=== PATIENT | female | born 1940 | race Caucasian/White ===

== ENCOUNTER 2019-05-18 13:46 | Inpatient (IN) | payer MEDICARE, OTHER ==
[~2019-05-18] VITALS: Ht 154.9 cm; Wt 70.8 kg
[~2019-05-18 13:46] MED LIST: LEVO125T8 PO; LISI10TA5 PO
[2019-05-18] MEDS ORDERED: QUET200T PO (13:54)
[2019-05-18] MEDS ORDERED: IPRA3AMP23 IH (13:54)
[2019-05-18] MEDS ORDERED: FLUO40CA49 PO (13:54)
[2019-05-18] MEDS ORDERED: ACET-868 PO (13:54)
[2019-05-18] MEDS ORDERED: QUET300T2 PO (13:54)
--- NOTE | 2019-05-18 14:07 | NUR ---
sent by [facility] for psych evaluation, pt is yelling and paranoid, pt to bed 7, -sob, pt on monitor, vss, nad noted, pending md hardy
[2019-05-18 14:33] LABS: BASOPHILS # (AUTO) 0.1 /CMM (0.0-0.2); BASOPHILS % (AUTO) 0.9 % (0.0-2.0); EOSINOPHILS % (AUTO) 0.7 % (0.0-6.0); HEMATOCRIT 37 % (33-45); HEMOGLOBIN 12.1 g/dL (11.5-14.8); LYMPHOCYTES # (AUTO) 0.9 /CMM (0.8-4.8); LYMPHOCYTES % (AUTO) 13.5 % (20.0-44.0); MEAN CORPUSCULAR HGB CONC 33 g/dl (31.0-36.0); MEAN CORPUSCULAR VOLUME 96 fL (82-100); MONOCYTES # (AUTO) 0.4 /CMM (0.1-1.30); MONOCYTES % (AUTO) 6.6 % (2.0-12.0); NEUTROPHILS % (AUTO) 78.3 % (43.0-81.0); PLATELET COUNT (AUTO) 300 /CMM (150-450); RED BLOOD CELL COUNT(AUTO) 3.88 MIL/uL (4.0-5.2); WHITE BLOOD COUNT (AUTO) 6.3 K/uL (4.3-11.0)
[2019-05-18 14:43] LABS: CALCIUM, SERUM 8.9 mg/dL (8.5-10.1); CREATININE 1.1 mg/dL (0.6-1.3)
[2019-05-18 14:46] LABS: ALBUMIN 3.7 g/dL (3.4-5.0); BILIRUBIN,DIRECT 0.1 mg/dL (0.0-0.2); BILIRUBIN,TOTAL 0.2 mg/dL (0.2-1.0); SALICYLATE 2.1 mg/dL (2.8-20.0); TOTAL PROTEIN, SERUM 7.5 g/dL (6.4-8.2)
[2019-05-18 15:22] LABS: APPEARANCE,URINE Clear (CLEAR); BILIRUBIN,URINE Negative (NEGATIVE); BLOOD, URINE Negative Ery/uL (NEGATIVE); COLOR,URINE Yellow (YELLOW); KETONES,URINE Negative (NEGATIVE); LEUKOCYTE ESTERASE ,URINE Negative (NEGATIVE); NITRITE, URINE Negative (NEGATIVE); PROTEIN,URINE Negative (NEGATIVE); UGLUCOSE Negative (NEGATIVE); UROBILINOGEN,URINE 0.2 EU/dL (0.2)
--- NOTE | 2019-05-18 15:53 | NUR ---
PT CLEARED. TAYLER VELIZ.
--- NOTE | 2019-05-18 15:56 | NUR ---
FABRIC PATTERN GRADER contacted Rowena in intake to inquire about admission to [facility]. Per Rowena, she is aware of the pt. being referred to [facility] and has contacted stemhole borer to come to evaluate the pt. FABRIC PATTERN GRADER updated MORRIS Barfield and Darrick in ED with aforementioned information.
--- NOTE | 2019-05-18 17:26 | NUR ---
REPORT GIVEN TO RODNEY NURSE [facility]; PT WILL BE TRANSPORTED TO [facility] ONCE MOVE PACKET IS READY; HOLD WRITTEN BY ART [id number]
[2019-05-18] MEDS ORDERED: BLOOD SUGAR DIAGNOSTIC 1 EACH STRIP IN ONE (18:00)
[2019-05-18] MEDS ORDERED: MAGNESIUM HYDROXIDE 30 ML UDC PO PRN (18:00)
[2019-05-18] MEDS ORDERED: MAG HYDROX/AL HYDROX/SIMETH 30 ML UDC PO PRN (18:00)
--- NOTE | 2019-05-18 20:27 | NUR ---
GPS/ROOM SERVICE ASSOCIATE ADMISSION NOTES: RECEIVED 78YR. OLD FEMALE ON A 5150 HOLD FOR GD. PT. A/O X2-3. UNCOOPERATIVE. PT. ORIENTED TO UNIT POLICY, PROCEDURES AND PROTOCOLS. CALL DAVIS WITHIN REACH AND BED ALARM ON. NOTIFIED MEDICAL AND PSYCHIATRIC MD REGARDING PT. ADMISSION TO UNIT.
[2019-05-18 20:51] VITALS: BP 148/64
[2019-05-18 21:00] VITALS: BP 148/64
[2019-05-18] MEDS ORDERED: IPRATROPIUM NEB FS 0.5 MG/2.5 ML AMPUL.NEB NEB PRN (22:00)
[2019-05-18] MEDS ORDERED: ALBUTEROL FS 2.5 MG/3 ML VIAL.NEB NEB PRN (22:00)
[2019-05-19 08:00] VITALS: BP 113/76
[2019-05-19] MEDS: LEVOTHYROXINE SODIUM 100 MCG TABLET PO SCH (08:17)
[2019-05-19] MEDS: METOPROLOL TARTRATE 25 MG TABLET PO SCH ×2 (09:30→21:27)
--- NOTE | 2019-05-19 10:25 | NUR ---
Facility Contact: JANELLE contacted Constance ([phone]) from [facility] and inquired about whether or not the pt can return to their facility and was informed that a referral would need to sent. JANELLE stated there is no information to send at this time and will send paperwork at a later time.
--- NOTE | 2019-05-19 11:41 | NUR ---
Initial Discharge Plan: Pt currently resides at [facility] located at [address] [place] [address]; ([phone]). Per pt, she would like to return to her home. Per Constance from the facility, the pt will be allowed to return. JANELLE will work with the pt and the MD regarding appropriate discharge planning. SW will form a safe and proper discharge plan.
--- NOTE | 2019-05-19 15:27 | NUR ---
Group Note: SW encouraged pt to participate in group on 05/19/19 at 2pm discussing social supports. Pt stated that she did not want to participate in group and the SW explored the pts resistance. Pt stated that she wanted to stay in her room because it was her first day and she did not want to talk about anything with the other patients. Pt stated that she had children but they are all living their own lives and that they are not involved with her anymore. When SW asked how that made her feel, the pt began to cry and asked the SW to leave her alone.
[2019-05-19 16:00] VITALS: BP 156/63
[2019-05-19 20:30] VITALS: BP 144/69
--- NOTE | 2019-05-19 20:30 | NUR ---
GPS RN NOTE PATIENT SEEN BY DR. THURSTON WITH NEW ORDERS. PATIENT GOT AGITATED IN FRONT OF MD, PATIENT PICKED UP HER WALKER ANXIOUSLY FROM ONE SIDE OF THE BED TO ANOTHER SIDE WHILE LAYING IN BED ASKING MD & STAFF TO LEAVE THE ROOM WHILE MD IS DISCUSSING PLAN OF CARE & NEW MEDICINES TO BE STARTED. MD & STAFF REDIRECTED THE PATIENT & MD MADE PT. AWARE ABOUT STARTING NEW MEDICINES. PT. DID CALM DOWN. CONSENT WAS FAXED TO THE PHARMACY. WILL FOLLOW UP & GIVE MEDICINE ORDERED.
[2019-05-19] MEDS: BENZTROPINE MESYLATE (1 MG) 1 MG TABLET PO SCH (20:55)
[2019-05-19] MEDS: FLUPHENAZINE HCL 10 MG TABLET PO SCH (21:51)
[2019-05-19] MEDS: CARBAMAZEPINE 200 MG TABLET PO SCH (21:51)
[2019-05-19] MEDS: ACETAMINOPHEN 325 MG TABLET PO PRN (23:22)
--- NOTE | 2019-05-19 23:26 | NUR ---
PRN TYLENOL GIVEN PATIENT C/O BACK PAIN 06/26, WANTED TO TAKE PAIN MEDICINE, PRN TYLENOL 650 MG PO GIVEN. WILL CONTINUE TO MONITOR FOR ANY CHANGES.
--- NOTE | 2019-05-20 01:47 | NUR ---
REFUSED SKIN CARE PATIENT CONTINUED TO REFUSE SKIN ASSESSMENT DESPITE OF RISKS & BENEFITS EXPLANATIONS, GETS VERY AGITED, ANXIOUS, RESTLESS & STARTS SCREAMING. VISIBLE SKIN AREAS FACE & ARMS SKIN APPEARED TO BE CLEAR & INTACT.
[2019-05-20] MEDS: LORAZEPAM 0.5 MG TABLET PO PRN ×2 (07:03→23:12)
--- NOTE | 2019-05-20 07:03 | NUR ---
PRN ATIVAN GIVEN PATIENT IS VERY ANXIOUS, RESTLESS, CRYING, SCREAMING, AGITATED, PRN ATIVAN 1 MG PO GIVEN. WILL ENDORSE TO AM RN TO CONTINUE MONITORING PT'S BEHAVIOR.
[2019-05-20 08:00] VITALS: BP 132/91
[2019-05-20] MEDS: FLUPHENAZINE HCL 10 MG TABLET PO SCH ×3 (08:56→16:58)
[2019-05-20] MEDS: LEVOTHYROXINE SODIUM 100 MCG TABLET PO SCH (08:57)
[2019-05-20] MEDS: CARBAMAZEPINE 200 MG TABLET PO SCH ×3 (08:57→16:58)
[2019-05-20] MEDS: FLUOXETINE HCL 20 MG CAPSULE PO SCH (08:57)
[2019-05-20] MEDS: BENZTROPINE MESYLATE (1 MG) 1 MG TABLET PO SCH ×3 (08:57→16:58)
[2019-05-20] MEDS: METOPROLOL TARTRATE 25 MG TABLET PO SCH ×2 (08:57→21:11)
[2019-05-20 10:40] LABS: ALBUMIN 3.5 g/dL (3.4-5.0); BILIRUBIN,TOTAL 0.4 mg/dL (0.2-1.0); CALCIUM, SERUM 8.8 mg/dL (8.5-10.1); CREATININE 1.1 mg/dL (0.6-1.3); POTASSIUM 3.4 mmol/L (3.5-5.1); TOTAL PROTEIN, SERUM 7.6 g/dL (6.4-8.2)
[2019-05-20] MEDS ORDERED: POTASSIUM CHLORIDE 20 MEQ TAB.PRT.SR PO ONE (11:00)
[2019-05-20 16:00] VITALS: BP 121/73
[2019-05-20 20:08] VITALS: BP 123/83
[2019-05-21 08:00] VITALS: BP 138/52
[2019-05-21] MEDS: CARBAMAZEPINE 200 MG TABLET PO SCH ×3 (09:20→17:55)
[2019-05-21] MEDS: FLUOXETINE HCL 20 MG CAPSULE PO SCH (09:21)
[2019-05-21] MEDS: FLUPHENAZINE HCL 10 MG TABLET PO SCH ×3 (09:21→17:55)
[2019-05-21] MEDS: BENZTROPINE MESYLATE (1 MG) 1 MG TABLET PO SCH ×3 (09:21→17:55)
[2019-05-21] MEDS: LEVOTHYROXINE SODIUM 100 MCG TABLET PO SCH (09:21)
[2019-05-21] MEDS: METOPROLOL TARTRATE 25 MG TABLET PO SCH ×2 (09:21→21:09)
[2019-05-21 16:00] VITALS: BP 144/66
[2019-05-21 19:50] VITALS: BP 134/89
[2019-05-21] MEDS: LORAZEPAM 0.5 MG TABLET PO PRN (21:09)
[2019-05-21] MEDS: TEMAZEPAM 7.5 MG CAPSULE PO PRN (22:19)
--- NOTE | 2019-05-22 05:53 | NUR ---
RN NOTES PT SKIN CHECK DONE, PICTURES TAKEN AND PLACED IN CHART. PT HAS SCRATCHES ON BLE AND LOWER BACK. WILL ENDORSE TO AM SHIFT
[2019-05-22] MEDS: LEVOTHYROXINE SODIUM 100 MCG TABLET PO SCH (07:45)
[2019-05-22 08:00] VITALS: BP 119/84
[2019-05-22] MEDS: FLUPHENAZINE HCL 10 MG TABLET PO SCH ×3 (08:15→16:30)
[2019-05-22] MEDS: METOPROLOL TARTRATE 25 MG TABLET PO SCH ×2 (08:15→21:20)
[2019-05-22] MEDS: FLUOXETINE HCL 20 MG CAPSULE PO SCH (08:15)
[2019-05-22] MEDS: BENZTROPINE MESYLATE (1 MG) 1 MG TABLET PO SCH ×3 (08:16→16:30)
[2019-05-22] MEDS: CARBAMAZEPINE 200 MG TABLET PO SCH ×3 (08:16→16:30)
[2019-05-22] MEDS: LORAZEPAM 0.5 MG TABLET PO PRN ×3 (11:05→19:51)
--- NOTE | 2019-05-22 11:05 | NUR ---
RN NOTE: PT WITH INCREASED AGITATION AND ANXIETY. CRYING AT BEDSIDE. MEDICATED WITH ATIVAN 1MG PRN
--- NOTE | 2019-05-22 15:34 | NUR ---
RN NOTE: PT WITH INCREASED AGITATION. CRYING AND ANXIOUS. MED WITH ATIVAN 1MG PO PRN.
[2019-05-22 16:00] VITALS: BP 158/90
--- NOTE | 2019-05-22 19:52 | NUR ---
PRN ATIVAN GIVEN patient is very anxious, restless, crying, agitated. PRN ativan 1 mg po given. will continue to monitor.
--- NOTE | 2019-05-22 20:30 | NUR ---
GPS RN NOTE PATIENT SEEN BY DR. THURSTON & ASKED IF PATIENT GETS OUT OF BED DURING DAY TIME, PER AM RN REPORT PT. STAYED IN BED MOST OF THE DAY. DR. THURSTON WANTS STAFF TO ENCOURAGE THE PATIENT TO GET OUT OF BED DURING DAY TIME. WILL ENDORSE TO AM RN TO ASSIST PATIENT TO PARTICIPATE IN ACTIVITIES & GET HER OUT OF BED.
[2019-05-22 20:38] VITALS: BP 147/66
[2019-05-22] MEDS: TEMAZEPAM 7.5 MG CAPSULE PO PRN (23:06)
--- NOTE | 2019-05-22 23:07 | NUR ---
PRN RESTORIL GIVEN PATIENT IS UNABLE TO SLEEP, RESTLESS/ANXIOUS, PRN RESTORIL 15 MG PO GIVEN ORDERED BY MD. WILL REASSESS FOR EFFECTIVENESS & WILL CONTINUE TO MONITOR CLOSELY.
[2019-05-23] MEDS: LORAZEPAM 0.5 MG TABLET PO PRN (04:46)
--- NOTE | 2019-05-23 04:47 | NUR ---
PRN ATIVAN GIVEN PATIENT IS VERY RESTLESS, ANXIOUS, CRYING CONSTANTLY, NON RE-DIRECTABLE. PRN ATIVAN 1 MG PO GIVEN ORDERED. VITALS STABLE 120/85, 77, 18, 97.4, 96% ON RA. WILL CONTINUE TO MONITOR FOR ANY CHANGES.
--- NOTE | 2019-05-23 05:02 | NUR ---
GPS RN NOTE PATIENT HAD SNACK & PO FLUIDS TOLERATED & FELL ASLEEP AFTER THAT. WILL MONITOR CLOSELY.
[2019-05-23 08:00] VITALS: BP 151/79
[2019-05-23] MEDS: CARBAMAZEPINE 200 MG TABLET PO SCH ×3 (08:23→17:25)
[2019-05-23] MEDS: FLUPHENAZINE HCL 10 MG TABLET PO SCH ×3 (08:23→17:24)
[2019-05-23] MEDS: METOPROLOL TARTRATE 25 MG TABLET PO SCH ×2 (08:23→21:41)
[2019-05-23] MEDS: LEVOTHYROXINE SODIUM 100 MCG TABLET PO SCH (08:23)
[2019-05-23] MEDS: Fluoxetine 10 mg capsule PO SCH (08:23)
[2019-05-23] MEDS: BENZTROPINE MESYLATE (1 MG) 1 MG TABLET PO SCH ×3 (08:29→17:00)
[2019-05-23] MEDS ORDERED: FLUOXETINE HCL 20 MG CAPSULE PO SCH (09:00)
[2019-05-23] MEDS: MENTHOL/CETYLPYRD (CEPACOL) 1 LOZ LOZENGE PO PRN ×2 (11:22→16:34)
[2019-05-23 16:00] VITALS: BP 141/73
--- NOTE | 2019-05-23 17:25 | NUR ---
refused abimael stating that it makes her cry
--- NOTE | 2019-05-23 17:47 | NUR ---
RN-CO: Dr Oz Morgan made aware that patient looks pale, weak, lethargic. However her vital signs are: 141/73,97.6,18,70,97 %. She was noted with poor PO intake. 25%, 25% for lunch and breakfast. Noted with slight cough. Her respirations are even and unlabored. MD stated he will evaluate.
--- NOTE | 2019-05-23 17:51 | NUR ---
RN-CO: Encouraged fluid intake and offers food. We will continue to monitor.
[2019-05-23 20:35] VITALS: BP 153/73
[2019-05-24] MEDS: TEMAZEPAM 7.5 MG CAPSULE PO PRN (00:18)
[2019-05-24] MEDS: LORAZEPAM 0.5 MG TABLET PO PRN (02:25)
[2019-05-24 08:00] VITALS: BP 156/72
[2019-05-24] MEDS: Fluoxetine 10 mg capsule PO SCH (08:50)
[2019-05-24] MEDS: LEVOTHYROXINE SODIUM 100 MCG TABLET PO SCH (08:50)
[2019-05-24] MEDS: CARBAMAZEPINE 200 MG TABLET PO SCH ×3 (08:50→16:19)
[2019-05-24] MEDS: BENZTROPINE MESYLATE (1 MG) 1 MG TABLET PO SCH ×4 (08:50→16:30)
[2019-05-24] MEDS: FLUPHENAZINE HCL 10 MG TABLET PO SCH ×3 (08:50→16:20)
[2019-05-24] MEDS: METOPROLOL TARTRATE 25 MG TABLET PO SCH ×2 (08:50→21:18)
[2019-05-24] MEDS: ACETAMINOPHEN 325 MG TABLET PO PRN (10:53)
[2019-05-24 16:00] VITALS: BP 130/70
[2019-05-24] MEDS: IBUPROFEN 400 MG TABLET PO PRN (16:19)
[2019-05-24 20:00] VITALS: BP 140/102
[2019-05-24 20:40] VITALS: BP 140/102
[2019-05-24 20:44] VITALS: BP_SYST 139; BP_SYST 140; BP_DIAS 102; BP_DIAS 85
[2019-05-24 22:05] VITALS: BP 139/85
[2019-05-24] MEDS: MIRTAZAPINE 15 MG TABLET PO SCH (22:06)
[2019-05-25] MEDS: TEMAZEPAM 7.5 MG CAPSULE PO PRN (00:05)
--- NOTE | 2019-05-25 00:06 | NUR ---
PRN RESTORIL GIVEN PATIENT IS UNABLE TO SLEEP, RESTLESS. PRN RESTORIL 15 MG PO GIVEN. WILL REASSESS FOR EFFECTIVENESS.
--- NOTE | 2019-05-25 00:10 | NUR ---
GPS RN NOTE PATIENT IS RESTING IN BED, CALM AT THIS TIME BUT SLEEPING INTERMITTENTLY. PATIENT WAS OFFERED PUDDING & LATER JUICE WAS OFFERED. NOTED PT. COUGHING INTERMITTENTLY WHILE SIPPING ON JUICE, NO COUGH NOTED WHILE EATING PUDDING. PER AM RN, SHE ALSO NOTED PATIENT COUGHING WHILE DRINKING INTERMITTENTLY. CHARGE NURSE MADE AWARE. [facility] ORDER RECEIVED FROM . ASPIRATION PRECAUTIONS MAINTAINED. WILL CONTINUE TO MONITOR PT. CLOSELY.
[2019-05-25] MEDS: LORAZEPAM 0.5 MG TABLET PO PRN (02:40)
--- NOTE | 2019-05-25 02:41 | NUR ---
PRN ATIVAN GIVEN PATIENT IS CRYING, ANXIOUS, RESTLESS, PRN ATIVAN 1 MG PO GIVEN ORDERED. WILL MONITOR CLOSELY FOR ANY CHANGES.
--- NOTE | 2019-05-25 03:57 | NUR ---
BREATHING TREATMENT BEING GIVEN TO THE PATIENT AT THIS TIME FOR PRODUCTIVE COUGH, RT ASSESSED THE PATIENT & STATED HER LUNGS ARE CLEAR. WILL CONTINUE TO MONITOR FOR ANY CHANGES.
[2019-05-25] MEDS: IBUPROFEN 400 MG TABLET PO PRN (06:24)
--- NOTE | 2019-05-25 06:26 | NUR ---
PRN MOTRIN GIVEN PATIENT STATED SHE HAS BODY ACHE, CRYING/MOANING AT THIS TIME, UNABLE TO SCALE PAIN LEVEL. PRN MOTRIN 400 MG 1 TAB PO GIVEN. WILL CONTINUE TO MONITOR.
[2019-05-25 08:00] VITALS: BP 162/60
[2019-05-25] MEDS: LEVOTHYROXINE SODIUM 100 MCG TABLET PO SCH (08:18)
[2019-05-25] MEDS: CARBAMAZEPINE 200 MG TABLET PO SCH ×3 (08:46→16:44)
[2019-05-25] MEDS: MENTHOL/CETYLPYRD (CEPACOL) 1 LOZ LOZENGE PO PRN (08:46)
[2019-05-25] MEDS: FLUPHENAZINE HCL 10 MG TABLET PO SCH ×3 (08:46→16:44)
[2019-05-25] MEDS: BENZTROPINE MESYLATE (1 MG) 1 MG TABLET PO SCH ×3 (08:46→16:44)
[2019-05-25] MEDS: METOPROLOL TARTRATE 25 MG TABLET PO SCH ×2 (08:47→20:45)
--- NOTE | 2019-05-25 14:10 | NUR ---
PATIENT APPEARS WEAK, PALE, LETHARGIC, GARBLED SPEECH. TOSSING, TURNING AND MOANING IN BED. CONTINUES TO HAVE POOR PO INTAKE. 25% FOR BREAKFAST. 25% FOR LUNCH. ENCOURAGED FLUIDS AND INCREASED PO INTAKE. DR HENDERSON MADE AWARE
--- NOTE | 2019-05-25 14:58 | NUR ---
RN-CO: Paged Dr Landeros, to notified him that patient is weak, with poor PO intake and lethargic. Awaiting for orders.
--- NOTE | 2019-05-25 15:04 | NUR ---
MORRIS HENDERSON ORDERED CBC, BMP AND UA
--- NOTE | 2019-05-25 15:37 | NUR ---
Group Note: SW encouraged pt to participate in group on 05/25/19 at 2pm discussing discharge planning. Pt appeared to be in a labile and was crying in her room when the SW walked in about her medications. SW asked the pt to participate in group and she stated that she would not until she got her medicine. SW informed the pt that she will be discharged back to the SNF soon and the pt stated that she wanted to go back to her apartment in [facility]. SW informed her that is not a safe discharge and informed her that she has not lived there in over a year.
[2019-05-25 15:39] LABS: BASOPHILS % (AUTO) 0.4 % (0.0-2.0); EOSINOPHILS % (AUTO) 1.1 % (0.0-6.0); HEMATOCRIT 38 % (33-45); HEMOGLOBIN 12.8 g/dL (11.5-14.8); LYMPHOCYTES # (AUTO) 1.5 /CMM (0.8-4.8); LYMPHOCYTES % (AUTO) 17.9 % (20.0-44.0); MEAN CORPUSCULAR HGB CONC 34 g/dl (31.0-36.0); MEAN CORPUSCULAR VOLUME 92 fL (82-100); MONOCYTES # (AUTO) 1.1 /CMM (0.1-1.30); MONOCYTES % (AUTO) 13.6 % (2.0-12.0); NEUTROPHILS # (AUTO) 5.6 /CMM (1.8-8.9); PLATELET COUNT (AUTO) 365 /CMM (150-450); WHITE BLOOD COUNT (AUTO) 8.4 K/uL (4.3-11.0)
[2019-05-25 15:59] LABS: CALCIUM, SERUM 8.9 mg/dL (8.5-10.1); CREATININE 0.8 mg/dL (0.6-1.3); POTASSIUM 3.8 mmol/L (3.5-5.1)
[2019-05-25 16:00] VITALS: BP 158/78
[2019-05-25 16:35] LABS: APPEARANCE,URINE CLOUDY (CLEAR); BILIRUBIN,URINE NEGATIVE (NEGATIVE); BLOOD, URINE TRACE-INTA Ery/uL (NEGATIVE); COLOR,URINE YELLOW (YELLOW); KETONES,URINE TRACE (NEGATIVE); LEUKOCYTE ESTERASE ,URINE TRACE (NEGATIVE); NITRITE, URINE NEGATIVE (NEGATIVE); PH,URINE 6.5 (5.0-8.0); PROTEIN,URINE 100 mg/dl (NEGATIVE); UGLUCOSE NEGATIVE (NEGATIVE); UROBILINOGEN,URINE 0.2 EU/dL (0.2)
--- NOTE | 2019-05-25 16:43 | NUR ---
PER DR THURSTON HOLD PSYCHOTROPIC MEDICATIONS IF PATIENT APPEARS TOO SEDATED AND/OR BP IS DECREASED
[2019-05-25 18:13] LABS: BACTERIA,URINE 4+ /HPF (None Seen); SQUAMOUS EPITHELIAL CELL,UR Moderate /HPF (None Seen); WBC,URINE TOO NUMEROUS TO COUN /HPF (0-3)
[2019-05-25 20:00] VITALS: BP 162/80
[2019-05-25] MEDS: MIRTAZAPINE 15 MG TABLET PO SCH (20:45)
[2019-05-26 08:00] VITALS: BP 151/59
[2019-05-26] MEDS: FLUPHENAZINE HCL 10 MG TABLET PO SCH ×3 (08:09→16:06)
[2019-05-26] MEDS: ACETAMINOPHEN 325 MG TABLET PO PRN (08:09)
[2019-05-26] MEDS: METOPROLOL TARTRATE 25 MG TABLET PO SCH ×2 (08:10→20:41)
[2019-05-26] MEDS: LORAZEPAM 0.5 MG TABLET PO PRN (08:10)
[2019-05-26] MEDS: CARBAMAZEPINE 200 MG TABLET PO SCH ×3 (08:10→16:06)
[2019-05-26] MEDS: BENZTROPINE MESYLATE (1 MG) 1 MG TABLET PO SCH ×3 (08:10→16:06)
[2019-05-26] MEDS: LEVOTHYROXINE SODIUM 100 MCG TABLET PO SCH (08:10)
--- NOTE | 2019-05-26 12:06 | NUR ---
speech therapist was at beside. ordered nectar thick liquids
[2019-05-26] MEDS: IBUPROFEN 400 MG TABLET PO PRN ×2 (14:05→22:23)
[2019-05-26] MEDS ORDERED: PHENAZOPYRIDINE HCL 200 MG TABLET PO PRN (15:30)
[2019-05-26 16:02] VITALS: BP 139/61
[2019-05-26] MEDS: CEPHALEXIN MONOHYDRATE 500 MG CAPSULE PO SCH (16:06)
[2019-05-26 20:31] VITALS: BP 152/64
[2019-05-26] MEDS: MIRTAZAPINE 15 MG TABLET PO SCH (21:08)
[2019-05-26 22:15] VITALS: BP 144/92
[2019-05-27] MEDS: TEMAZEPAM 7.5 MG CAPSULE PO PRN (01:57)
[2019-05-27 08:00] VITALS: BP 126/58
[2019-05-27] MEDS: LEVOTHYROXINE SODIUM 100 MCG TABLET PO SCH (08:06)
[2019-05-27] MEDS: BENZTROPINE MESYLATE (1 MG) 1 MG TABLET PO SCH ×3 (08:07→16:27)
[2019-05-27] MEDS: FLUPHENAZINE HCL 10 MG TABLET PO SCH ×3 (08:07→16:26)
[2019-05-27] MEDS: CEPHALEXIN MONOHYDRATE 500 MG CAPSULE PO SCH ×2 (08:07→16:27)
[2019-05-27] MEDS: CARBAMAZEPINE 200 MG TABLET PO SCH ×3 (08:07→16:27)
[2019-05-27] MEDS: METOPROLOL TARTRATE 25 MG TABLET PO SCH ×2 (08:08→20:11)
[2019-05-27] MEDS: LORAZEPAM 0.5 MG TABLET PO PRN (10:17)
--- NOTE | 2019-05-27 10:19 | NUR ---
GPS/RN-NOTES NOTED PATIENT WITH CONTINUOUS SCREAMING AND YELLING IN HER ROOM, DESPITE REDIRECTIONS A AND OFFERING WATER SOME SNACKS. OFFERED ATIVAN AND AGREED. ATIVAN 1MG P.O GIVEN PRN ORDER. WILL CONT. MONITORING FOR SAFETY AND BEHAVIOR.
[2019-05-27 16:00] VITALS: BP 152/68
[2019-05-27 20:05] VITALS: BP 155/74
[2019-05-27] MEDS: MIRTAZAPINE 15 MG TABLET PO SCH (21:00)
[2019-05-27] MEDS: IBUPROFEN 400 MG TABLET PO PRN (21:56)
[2019-05-28 08:00] VITALS: BP 154/92
[2019-05-28] MEDS: FLUPHENAZINE HCL 10 MG TABLET PO SCH ×3 (09:27→17:19)
[2019-05-28] MEDS: CARBAMAZEPINE 200 MG TABLET PO SCH ×3 (09:27→17:19)
[2019-05-28] MEDS: CEPHALEXIN MONOHYDRATE 500 MG CAPSULE PO SCH ×2 (09:27→17:19)
[2019-05-28] MEDS: BENZTROPINE MESYLATE (1 MG) 1 MG TABLET PO SCH ×3 (09:27→17:19)
[2019-05-28] MEDS: LEVOTHYROXINE SODIUM 100 MCG TABLET PO SCH (09:27)
[2019-05-28] MEDS: METOPROLOL TARTRATE 25 MG TABLET PO SCH ×2 (09:28→21:55)
[2019-05-28 16:00] VITALS: BP 120/83
[2019-05-28 20:36] VITALS: BP 135/77
[2019-05-28] MEDS: MIRTAZAPINE 15 MG TABLET PO SCH (22:55)
[2019-05-29] MEDS: TEMAZEPAM 7.5 MG CAPSULE PO PRN (01:25)
--- NOTE | 2019-05-29 01:29 | NUR ---
[facility]PS RN NOTES: UPON DOING ROUNDS, PT IN BED AWAKE AND CRYING. PT STATED, " I CANT SLEEP. I NEED MEDICINE TO SLEEP. " OFFERED RESTORIL 15 MG PO PRN ORDERED. PT AGREED AND TOLERATED MEDICATION WELL. CONTINUE TO MONITOR.
[2019-05-29 08:00] VITALS: BP 150/70
[2019-05-29] MEDS: METOPROLOL TARTRATE 25 MG TABLET PO SCH ×2 (08:09→21:36)
[2019-05-29] MEDS: BENZTROPINE MESYLATE (1 MG) 1 MG TABLET PO SCH ×3 (08:09→17:15)
[2019-05-29] MEDS: LEVOTHYROXINE SODIUM 100 MCG TABLET PO SCH (08:09)
[2019-05-29] MEDS: CEPHALEXIN MONOHYDRATE 500 MG CAPSULE PO SCH ×2 (08:09→17:15)
[2019-05-29] MEDS: CARBAMAZEPINE 200 MG TABLET PO SCH ×3 (08:10→17:15)
[2019-05-29] MEDS: FLUPHENAZINE HCL 10 MG TABLET PO SCH ×3 (08:10→17:15)
[2019-05-29 13:14] LABS: CALCIUM, SERUM 8.8 mg/dL (8.5-10.1); CREATININE 0.8 mg/dL (0.6-1.3); MAGNESIUM 2.1 mg/dL (1.8-2.4); PHOSPHORUS 4.2 mg/dL (2.5-4.9); POTASSIUM 3.9 mmol/L (3.5-5.1)
[2019-05-29] MEDS: IBUPROFEN 400 MG TABLET PO PRN (13:33)
--- NOTE | 2019-05-29 13:35 | NUR ---
PATIENT CRYING SPELL AND C/O GENERALIZED PAIN, GIVEN IBUPROFEN 400NG PO. WILL CONTINUE TO MONITOR FOR PATIENT CONDITION.
[2019-05-29 13:37] LABS: THYROID STIMULATING HORMONE 3.66 uIU/mL (0.358-3.74); URIC ACID 4.6 mg/dL (2.6-7.2)
[2019-05-29 16:00] VITALS: BP 150/54
--- NOTE | 2019-05-29 19:56 | NUR ---
[facility] RN notes Received a phone yazmin from the [facility]Tc to informed that Pt's cortisol is 14.7. Charge nurse is aware and informed.
[2019-05-29 20:00] VITALS: BP 147/76
--- NOTE | 2019-05-29 20:00 | NUR ---
GPS RN notes Pt is in vishal-chair. Pt tolerated activity well.
[2019-05-29 20:19] VITALS: BP 147/76
--- NOTE | 2019-05-29 20:50 | NUR ---
GPS RN notes Helped Pt back to bed. Will continue to monitor.
[2019-05-29 21:34] VITALS: BP 136/63
[2019-05-29] MEDS: MIRTAZAPINE 15 MG TABLET PO SCH (21:37)
[2019-05-30] MEDS: ACETAMINOPHEN 325 MG TABLET PO PRN ×2 (01:14→15:07)
--- NOTE | 2019-05-30 01:14 | NUR ---
GPS RN notes Pt is complaining of headache and requesting meds. Administered Tylenol 325 mg/2 tabs/PO as ordered for headache. Will continue to monitor.
[2019-05-30 02:55] VITALS: BP 157/75
[2019-05-30] MEDS: LORAZEPAM 0.5 MG TABLET PO PRN ×3 (02:56→17:33)
--- NOTE | 2019-05-30 02:58 | NUR ---
GPS RN notes Pt is feeling anxious, restless, crying and talking to self. Administered ativan 0.5 mg/2 tabs/po as ordered for anxiety. VS is stable. Will continue to monitor.
[2019-05-30] MEDS: LEVOTHYROXINE SODIUM 100 MCG TABLET PO SCH (07:37)
[2019-05-30] MEDS: FLUPHENAZINE HCL 10 MG TABLET PO SCH ×3 (07:48→17:10)
[2019-05-30] MEDS: IBUPROFEN 400 MG TABLET PO PRN (07:49)
--- NOTE | 2019-05-30 07:59 | NUR ---
RN NOTE: PT AGITATED, IRRITABLE, MOANING. NON-REDIRECTIBLE. MEDICATED WITH ATIVAN 1MG PO.
[2019-05-30 08:00] VITALS: BP 145/64
--- NOTE | 2019-05-30 08:01 | NUR ---
RN NOTE: PT MOANING. C/O GENERALIZED PAIN. MEDICATED WITH IBRUPROFEN 400 MG PO.
[2019-05-30 08:02] LABS: BASOPHILS % (AUTO) 0.4 % (0.0-2.0); EOSINOPHILS % (AUTO) 1.1 % (0.0-6.0); HEMATOCRIT 37 % (33-45); HEMOGLOBIN 12.5 g/dL (11.5-14.8); LYMPHOCYTES # (AUTO) 1.7 /CMM (0.8-4.8); LYMPHOCYTES % (AUTO) 22.3 % (20.0-44.0); MEAN CORPUSCULAR HGB CONC 33 g/dl (31.0-36.0); MEAN CORPUSCULAR VOLUME 92 fL (82-100); MONOCYTES % (AUTO) 13.4 % (2.0-12.0); NEUTROPHILS # (AUTO) 4.9 /CMM (1.8-8.9); NEUTROPHILS % (AUTO) 62.8 % (43.0-81.0); PLATELET COUNT (AUTO) 392 /CMM (150-450); RED BLOOD CELL COUNT(AUTO) 4.05 MIL/uL (4.0-5.2); WHITE BLOOD COUNT (AUTO) 7.8 K/uL (4.3-11.0)
[2019-05-30] MEDS: CEPHALEXIN MONOHYDRATE 500 MG CAPSULE PO SCH ×2 (08:02→17:10)
[2019-05-30] MEDS: METOPROLOL TARTRATE 25 MG TABLET PO SCH ×2 (08:02→21:39)
[2019-05-30] MEDS: BENZTROPINE MESYLATE (1 MG) 1 MG TABLET PO SCH ×3 (08:03→17:09)
[2019-05-30] MEDS: CARBAMAZEPINE 200 MG TABLET PO SCH ×3 (08:05→17:09)
[2019-05-30 08:16] LABS: CALCIUM, SERUM 8.8 mg/dL (8.5-10.1); CREATININE 0.8 mg/dL (0.6-1.3)
--- NOTE | 2019-05-30 10:49 | NUR ---
RN NOTE: PT ASSISTED TO GERICHAIR. PLACED IN DAYROOM. PT EYES ARE CLOSED WITH MOUTH OPEN. PT STOPPED CRYING FOR A PERIOD OF TIME. PT SEEMS TO BE RESISTANT TO THE INTERVENTIONS IN PLACE.
[2019-05-30] MEDS: MENTHOL/CETYLPYRD (CEPACOL) 1 LOZ LOZENGE PO PRN (14:23)
--- NOTE | 2019-05-30 14:23 | NUR ---
RN NOTE: PT REQUESTING COUGH DROP FOR COUGH. MEDICATED WITH CEPACOL PRN.
[2019-05-30 16:00] VITALS: BP 135/57
--- NOTE | 2019-05-30 17:33 | NUR ---
RN NOTE: DISPLAYING INCREASED AGITATION AND ANXIETY. PT MEDICATED WITH ATIVAN 1MG PO.
[2019-05-30 19:48] VITALS: BP 99/43
[2019-05-30 20:00] VITALS: BP 99/43
[2019-05-30 21:38] VITALS: BP 124/69
[2019-05-30] MEDS: MIRTAZAPINE 15 MG TABLET PO SCH (21:45)
[2019-05-31 01:11] VITALS: BP 138/71
[2019-05-31] MEDS: TEMAZEPAM 7.5 MG CAPSULE PO PRN ×2 (01:12→23:26)
--- NOTE | 2019-05-31 01:13 | NUR ---
GPS RN notes Pt is in bed awake and crying. Pt states " I can't sleep." Administered restoril 7.5 mg/2 tabs/po as ordered for sleeping. VS is stable. Will continue to monitor.
[2019-05-31 08:00] VITALS: BP 126/54
[2019-05-31] MEDS: LEVOTHYROXINE SODIUM 100 MCG TABLET PO SCH (08:16)
[2019-05-31] MEDS: CEPHALEXIN MONOHYDRATE 500 MG CAPSULE PO SCH ×2 (08:16→17:02)
[2019-05-31] MEDS: BENZTROPINE MESYLATE (1 MG) 1 MG TABLET PO SCH ×3 (08:16→17:02)
[2019-05-31] MEDS: FLUPHENAZINE HCL 10 MG TABLET PO SCH ×3 (08:16→17:02)
[2019-05-31] MEDS: CARBAMAZEPINE 200 MG TABLET PO SCH ×3 (08:16→17:02)
[2019-05-31] MEDS: METOPROLOL TARTRATE 25 MG TABLET PO SCH ×2 (08:17→21:38)
[2019-05-31] MEDS: IBUPROFEN 400 MG TABLET PO PRN (10:22)
--- NOTE | 2019-05-31 10:45 | NUR ---
SNF Contact: JANELLE spoke to Constance ([phone]) from [facility] and informed her that the pt will be discharged back to the facility on Wednesday.
--- NOTE | 2019-05-31 15:31 | NUR ---
Group Note: SW encouraged pt to participate in group on 05/31/19 at 2pm discussing suicidal urges and ideation. Pt refused to attend the group and began asking the SW about her home in [facility]. SW explained to her that she no longer has an apartment in [facility] and that she has been living in a SNF for about one year now. Pt appeared to be confused and disorganized. Pt began crying and presented in a labile mood. Pt was not deemed appropriate for group.
[2019-05-31 16:00] VITALS: BP 141/70
--- NOTE | 2019-05-31 19:25 | NUR ---
GPS RN NOTES: RECEIVED PATIENT Patient in bed, awake, eyes close. A/O x1 with confusion, appears restless and anxious, continuously mumbles, crying sounds, denies pain. Sliding herself to the edge of the bed. Safety measure in place. Fall precaution maintained. Continue safety check every hour.
[2019-05-31 20:00] VITALS: BP 162/69
[2019-05-31] MEDS: MIRTAZAPINE 15 MG TABLET PO SCH (21:38)
[2019-05-31] MEDS: LORAZEPAM 0.5 MG TABLET PO PRN (22:03)
--- NOTE | 2019-05-31 22:06 | NUR ---
GPS RN NOTES Patient appears restless, head and right arm leaning forward to the edge of the bed, continuously making sounds like crying and mumbles at times, denies pain, no c/o SOB. Fall precaution maintained, PRN Ativan given, will reassess.
[2019-05-31] MEDS ORDERED: CLONIDINE HCL 0.1 MG TABLET PO ONE (23:00)
[2019-05-31] MEDS ORDERED: CLONIDINE HCL 0.1 MG TABLET PO PRN (23:00)
--- NOTE | 2019-05-31 23:03 | NUR ---
GPS RN NOTES Elevated BP 185/77 Pulse 54 Notified monotype machinist CHILD WATCH ATTENDANT Mason with new orders.
--- NOTE | 2019-05-31 23:20 | NUR ---
GPS RN NOTES Elevated BP 185/77 Pulse 54 patient denies headache, no c/o nausea no vomiting. Given PRN Catapres, will reassess.
--- NOTE | 2019-05-31 23:28 | NUR ---
GPS RN NOTES: UNABLE TO SLEEP Patient not sleeping, eyes close but continuously humming and mumbles in bed. Poor sleep, given PRN Restoril, safety measure in place. Will reassess.
--- NOTE | 2019-06-01 00:15 | NUR ---
GPS RN: BP REASSESSMENT BP improved, now 140/68 Pulse 51 after PRN Catapres.
--- NOTE | 2019-06-01 00:26 | NUR ---
GPS RN NOTES: INSOMIA REASSESSMENT Patient in bed, Intermittent crying and mumbles sounds, appears sleeping with eyes closed. Maintained safety.
[2019-06-01 02:19] LABS: URINE SODIUM, RANDOM 21 mmol/l (40-220)
[2019-06-01 02:23] LABS: OSMOLALITY,URINE 408 mOS/kg (340-1090)
[2019-06-01] MEDS: LORAZEPAM 0.5 MG TABLET PO PRN ×3 (05:59→14:36)
[2019-06-01] MEDS: ACETAMINOPHEN 325 MG TABLET PO PRN (06:00)
--- NOTE | 2019-06-01 06:04 | NUR ---
GPS RN NOTES: PAIN MEDICATION Patient c/o headache, crying. Appears anxious, mumbles, restless. Given PRN Tylenol and PRN Ativan for anxiety, will reassess.
--- NOTE | 2019-06-01 06:36 | NUR ---
GPS RN NOTES: END OF SHIFT REPORT Patient in bed, stable oxygen saturation on room air. Restless at times, mild improvement with PRN Ativan. Headache relief with PRN Tylenol, denies nausea no vomiting. Episode of elevated BP, improved with PRN Catapres. Poor sleep, medicated with PRN Restoril, intermittent sleep total 3.5 hours last night. Will endorse to Oncoming RN to follow up with MD, sleep medication for review. On fluid restriction, urine sodium resulted. Hourly rounds, fall precaution maintained.
[2019-06-01 08:00] VITALS: BP 121/66
[2019-06-01] MEDS: METOPROLOL TARTRATE 25 MG TABLET PO SCH ×2 (09:03→22:44)
[2019-06-01] MEDS: CEPHALEXIN MONOHYDRATE 500 MG CAPSULE PO SCH ×2 (09:03→18:37)
[2019-06-01] MEDS: BENZTROPINE MESYLATE (1 MG) 1 MG TABLET PO SCH ×3 (09:03→18:37)
[2019-06-01] MEDS: CARBAMAZEPINE 200 MG TABLET PO SCH ×3 (09:04→18:36)
[2019-06-01] MEDS: LEVOTHYROXINE SODIUM 100 MCG TABLET PO SCH (09:04)
[2019-06-01] MEDS: FLUPHENAZINE HCL 10 MG TABLET PO SCH ×3 (09:04→18:36)
--- NOTE | 2019-06-01 15:50 | NUR ---
GROUP NOTE: SW encouraged pt to attend group on this present day discussing "discharge planning." Pt unable to participate in group as she was being groomed by the YARN PACKER.
--- NOTE | 2019-06-01 15:56 | NUR ---
Individual Intervention: SW informed the pt that she is being discharged back to [facility] because she does not have an apartment in [facility] but the pt did not believe the SW and began crying.
[2019-06-01 16:00] VITALS: BP 160/84
--- NOTE | 2019-06-01 19:20 | NUR ---
RN OPENING NOTES: RECEIVED PATIENT IN BED. AWAKE. A/O X2. CALM. NO COMPLAIN OF PAIN. NO SOB. BED IN LOWEST AND LOCKED POSITION. ON FLUID RESTRICTION 1000ML/DAY
[2019-06-01 20:00] VITALS: BP 141/63
[2019-06-01 20:20] VITALS: BP 141/63
[2019-06-01] MEDS: MIRTAZAPINE 15 MG TABLET PO SCH (22:41)
--- NOTE | 2019-06-02 03:46 | NUR ---
PATIENT REQUESTED CRACKERS, GIVEN 2 ANTHONY CRACKERS, ATE 100%.
[2019-06-02] MEDS: LORAZEPAM 0.5 MG TABLET PO PRN (05:18)
[2019-06-02 06:18] LABS: BASOPHILS # (AUTO) 0.1 /CMM (0.0-0.2); BASOPHILS % (AUTO) 0.9 % (0.0-2.0); EOSINOPHILS % (AUTO) 1.1 % (0.0-6.0); HEMATOCRIT 34 % (33-45); HEMOGLOBIN 11.7 g/dL (11.5-14.8); LYMPHOCYTES # (AUTO) 1.8 /CMM (0.8-4.8); MEAN CORPUSCULAR HGB CONC 34 g/dl (31.0-36.0); MEAN CORPUSCULAR VOLUME 91 fL (82-100); MONOCYTES # (AUTO) 0.9 /CMM (0.1-1.30); MONOCYTES % (AUTO) 12.7 % (2.0-12.0); NEUTROPHILS # (AUTO) 4.2 /CMM (1.8-8.9); NEUTROPHILS % (AUTO) 59.3 % (43.0-81.0); PLATELET COUNT (AUTO) 396 /CMM (150-450); RED BLOOD CELL COUNT(AUTO) 3.76 MIL/uL (4.0-5.2)
[2019-06-02 06:49] LABS: CALCIUM, SERUM 8.9 mg/dL (8.5-10.1); CREATININE 0.8 mg/dL (0.6-1.3); MAGNESIUM 1.9 mg/dL (1.8-2.4); PHOSPHORUS 3.1 mg/dL (2.5-4.9); POTASSIUM 3.7 mmol/L (3.5-5.1)
[2019-06-02 08:00] VITALS: BP 160/71
[2019-06-02] MEDS: BENZTROPINE MESYLATE (1 MG) 1 MG TABLET PO SCH ×2 (08:50→12:40)
[2019-06-02] MEDS: CARBAMAZEPINE 200 MG TABLET PO SCH ×2 (08:50→12:40)
[2019-06-02] MEDS: CEPHALEXIN MONOHYDRATE 500 MG CAPSULE PO SCH (08:50)
[2019-06-02] MEDS: FLUPHENAZINE HCL 10 MG TABLET PO SCH ×2 (08:50→12:40)
[2019-06-02] MEDS: LEVOTHYROXINE SODIUM 100 MCG TABLET PO SCH (08:50)
[2019-06-02 08:51] VITALS: BP 160/71
[2019-06-02] MEDS: METOPROLOL TARTRATE 25 MG TABLET PO SCH (08:51)
--- NOTE | 2019-06-02 09:19 | NUR ---
RN-CO: DR THURSTON ORDERED TO DISCONTINUE HOLD AND DISCHARGE PATIENT TODAY, NOTED AND CARRIED OUT.
--- NOTE | 2019-06-02 13:55 | NUR ---
GPS/RN-NOTES PATIENT WAS DISCHARGE TO [facility] TODAY. DR. THURSTON AND DR. RINCON AWARE AND AGREED WITH DISCHARGE. REPORT WAS GIVEN TO CORNELIUS ( MACHINE LACER ) FACILITY STAFF.PATIENT DID NOT VERBALIZE SI/HI,DENIES VISUAL/AUDITORY HALLUCINATIONS AT THE TIME OF DISCHARGE. ALL BELONGINGS WAS GIVEN TO THE PATIENT. BRAND COORDINATOR BY AMBULANCE VIA GURNEY WITH TWO STAFF ASSIST.NO FAMILY TO NOTIFY FOR THE DISCHARGE.
--- NOTE | 2019-06-02 15:06 | NUR ---
Discharge Note: Pt was discharged to [facility] ([facility]) located at [address] [place] [address]; . Pt was transported via [facility] at 1:00PM. Pt did not have family to contact. Upon discharge, the pt appeared to be in a dysphoric mood and presented with an irritable and agitated affect. Pt stated that she was upset that she cannot return to her apartment in [facility] but when the SW called the apartment building, she was told that the pt does not reside there. Pt denied both visual and auditory hallucinations as well as suicidal and homicidal ideation. Pt will be under the care of her psychiatrist, Dr. Alcantara, located at [address] [place] [address]; ) and her data sciences director, Dr. Barrett, located at [address] [facility] [address], [place] [address]; ).
== END 2019-06-02 13:55 | DRG 885 ==
LOC: ER 13:48 → GPS 17:43
PROVIDERS: ADMIT Psychiatry & Neurology Psychiatry; ATTEND Nurse Practitioner Acute Care
DX: F25.9 Schizoaffective disorder, unspecified (principal); D68.59 Other primary thrombophilia; F23 Brief psychotic disorder; N39.0 Urinary tract infection, site not specified; E22.2 Syndrome of inappropriate secretion of antidiuretic hormone; I10 Essential (primary) hypertension; J44.9 Chronic obstructive pulmonary disease, unspecified; E86.0 Dehydration; E03.9 Hypothyroidism, unspecified; E66.9 Obesity, unspecified; Z98.84 Bariatric surgery status; R73.9 Hyperglycemia, unspecified; E87.6 Hypokalemia; B96.89 Other specified bacterial agents as the cause of diseases classified elsewhere; Z91.14 Patient's other noncompliance with medication regimen; Z68.29 Body mass index [BMI] 29.0-29.9, adult; T50.905A Adverse effect of unspecified drugs, medicaments and biological substances, initial encounter; Y92.89 Other specified places as the place of occurrence of the external cause
CPT/HCPCS: 36415; 80048-TC; 80053-TC; 80061-TC; 80076-TC; 80156-TC; 80305; 81000-TC; 82533; 82962-TC; 83735-TC; 83935-TC; 84100-TC; 84300-TC; 84443-TC; 84550-TC; 85025-TC; 87081-TC; 87086-TC; 87186-TC; 92521; 92526; 97110-TC; 97116-TC; 97530-TC; G0480